=== PATIENT | female | born 1970 | race Caucasian/White ===

== ENCOUNTER 2016-07-23 11:30 | Day surgery (SDC) | payer MEDICARE ==
--- NOTE | ~2016-07-23 | EGD ---
EGD REPORT [facility] [address] [address] NAME: KRISTYN ANAND : [birth year] STATUS : REG [facility]#: [id number] AGE: 46 ADM/REG DATE : 07/23/16 MR#: [id number] REPORT SERV DATE: 07/23/16 DICTATED BY: DATE: REPORT STATUS : Draft TRANSCRIBED BY: [facility] DATE: 07/23/16 Endoscopy Center Patient Name: Kristyn Anand Date of : 1970 Attending MD: NATHAN JOHNSON MD Procedure Date No Time: 07/23/2016 Procedure: Upper GI endoscopy Indications: Dyspepsia, Abnormal CT of the GI tract Referring MD: BJORN GARCIA Medicines: Monitored Anesthesia Care Complications: No immediate complications. Procedure: Pre-Anesthesia Assessment: - ASA Grade Assessment: III - A patient with severe systemic disease. After obtaining informed consent, the endoscope was passed under direct vision. Throughout the procedure, the patient's blood pressure, pulse, and oxygen saturations were monitored continuously. The GIF H190 [id number] was introduced through the mouth, and advanced to the second part of duodenum. The upper GI endoscopy was accomplished without difficulty. The patient tolerated the procedure well. Findings: The examined esophagus was normal with the exception of a diminutive plaque in the mid-esophagus that was removed with forceps. There is no endoscopic evidence of Dudley's esophagus, areas of erosion, hiatus hernia, ulcerations or varices in the entire esophagus. The entire examined stomach was normal. Biopsies were taken with a cold forceps for histology. There is no endoscopic evidence of inflammation, mucosal abnormalities, ulceration or varices in the entire examined stomach. The examined duodenum was normal. There is no endoscopic evidence of inflammation, mucosal abnormalities or ulceration in the entire examined duodenum. The cardia and gastric fundus were normal on retroflexion. Impression: - Diminutive plaque in esophagus, biopsied and removed. - Normal stomach. Biopsied. - Normal examined duodenum. Recommendation: - Patient has a contact number available for emergencies. The signs and symptoms of potential delayed complications were discussed with the patient. Return to normal activities tomorrow. Written discharge EGD REPORT [address] [address] NAME: KRISTYN ANAND : [birth year] STATUS : [place] [facility] [place] PAT#: [id number] AGE: 46 ADM/REG DATE : 07/23/16 MR#: [id number] REPORT SERV DATE: 07/23/16 DICTATED BY: DATE: REPORT STATUS : Draft TRANSCRIBED BY: [employer] DATE: 07/23/16 instructions were provided to the patient. - Return to previous diet. - Discharge patient to home. - Continue present medications. - Await pathology results. Procedure Code(s): --- Professional --- 18288, Esophagogastroduodenoscopy, flexible, transoral; with biopsy, single or multiple Diagnosis Code(s): --- Professional --- K30, Functional dyspepsia R93.3, Abnormal findings on diagnostic imaging of other parts of digestive tract CPT copyright 2013 [employer]. All rights reserved. The codes documented in this report are preliminary and upon inpatient coder review may be revised to meet current compliance requirements. NATHAN JOHNSON MD 07/23/2016 2:34 PM This report has been signed electronically. Number of Addenda: 0 Note Initiated On: 07/23/2016 2:06 PM Scope Withdrawal Time 0 hours 0 minutes 0 seconds [address] [place] [address]
--- NOTE | ~2016-07-23 | EGD ---
EGD REPORT [facility] [address] [address] NAME: KRISTYN ANAND : [birth year] STATUS : REG [facility]#: [id number] AGE: 46 ADM/REG DATE : 07/23/16 MR#: [id number] REPORT SERV DATE: 07/23/16 DICTATED BY: DATE: REPORT STATUS : Draft [facility]ANS[facility]IB[facility] BY: [facility] DATE: 07/23/16 Endoscopy Center Patient Name: Kristyn Anand Date of : 1970 Attending MD: NATHAN JOHNSON MD Procedure Date No Time: 07/23/2016 Procedure: Upper GI endoscopy Indications: Dyspepsia, Abnormal CT of the GI tract Referring MD: BJORN GARCIA Medicines: Monitored Anesthesia Care Complications: No immediate complications. Procedure: Pre-Anesthesia Assessment: - ASA Grade Assessment: III - A patient with severe systemic disease. After obtaining informed consent, the endoscope was passed under direct vision. Throughout the procedure, the patient's blood pressure, pulse, and oxygen saturations were monitored continuously. The GIF H190 [id number] was introduced through the mouth, and advanced to the second part of duodenum. The upper GI endoscopy was accomplished without difficulty. The patient tolerated the procedure well. Findings: The examined esophagus was normal with the exception of a diminutive plaque in the mid-esophagus that was removed with forceps. There is no endoscopic evidence of Dudley's esophagus, areas of erosion, hiatus hernia, ulcerations or varices in the entire esophagus. The entire examined stomach was normal. Biopsies were taken with a cold forceps for histology. There is no endoscopic evidence of inflammation, mucosal abnormalities, ulceration or varices in the entire examined stomach. The examined duodenum was normal. There is no endoscopic evidence of inflammation, mucosal abnormalities or ulceration in the entire examined duodenum. The cardia and gastric fundus were normal on retroflexion. Impression: - Diminutive plaque in esophagus, biopsied and removed. - Normal stomach. Biopsied. - Normal examined duodenum. Recommendation: - Patient has a contact number available for emergencies. The signs and symptoms of potential delayed complications were discussed with the patient. Return to normal activities tomorrow. Written discharge EGD REPORT [address] [address] NAME: KRISTYN ANAND : [birth year] STATUS : REG [facility] PAT#: [id number] AGE: 46 ADM/REG DATE : 07/23/16 MR#: [id number] REPORT SERV DATE: 07/23/16 DICTATED BY: DATE: REPORT STATUS : Draft TRANSCRIBED BY: [employer] DATE: 07/23/16 instructions were provided to the patient. - Return to previous diet. - Discharge patient to home. - Continue present medications. - Await pathology results. Procedure Code(s): --- Professional --- 21265, Esophagogastroduodenoscopy, flexible, transoral; with biopsy, single or multiple Diagnosis Code(s): --- Professional --- K30, Functional dyspepsia R93.3, Abnormal findings on diagnostic imaging of other parts of digestive tract CPT copyright 2013 [employer]. All rights reserved. The codes documented in this report are preliminary and upon vest front presser review may be revised to meet current compliance requirements. NATHAN JOHNSON MD 07/23/2016 2:34 PM This report has been signed electronically. Number of Addenda: 0 Note Initiated On: 07/23/2016 2:06 PM Scope Withdrawal Time 0 hours 0 minutes 0 seconds [address] [place] [address]
[~2016-07-23 11:30] MED LIST: ASA5GR PO; ASAB PO; ASABAYER PO; ATEN25 PO; ATEN50 PO; ATV.5 PO; BENTYL10 PO; BUM2 PO; CARDIZEM; CARDIZEM LA180 MG PO; COZ50 PO; CRESTOR10 PO; CYMBALTA60 PO; DEMA20 PO; ESTRADIOL2 MG OR; ESTRADIOL2 MG PO; EXCEDRIN MIGRA1 EAC1 PO; FIORICET PO; FLEX PO; HYDROCODONE OR; KDUR10 PO; KLOR-CON M1010 MEQ PO; KLOR-CON M2020 MEQ PO; L40 PO; L80 PO; LIPITOR10 PO; LYRICA50 PO; MACROBID PO; MAGOX4 PO; MAX25 PO; NEUR300 PO; NEXIUM40 PO; NORCO1 TAB PO; NORV5 PO; PR25 PO; PRILO PO; PRILOSEC40 MG PO; PROTONIX PO; REXULTI PO; TAMBOCOR PO; TETRACYCLINE; TOPAMAX100 PO; TOPAMAX200 MG PO; TOPAMAX50 MG PO; TRINTELLIX10 MG PO; V5 PO; VENTOLIN HFA INH; VITAMIN B-121000 MC1 SL; VITAMIN E OR; VOLTARAN; XANAX1 MG PO; ZAROX2.5B PO; [UNRECOGNIZED DRUG - OTHER] PO
== END 2016-07-23 23:59 | disposition home or self-care (01) ==
LOC: DMU 11:30
PROVIDERS: Internal Medicine Gastroenterology
PROC: 0DB68ZZ Excision of Stomach, Via Natural or Artificial Opening Endoscopic (ICD-10-PCS; principal; 2016-07-23 14:30)
DX: K20.9 Esophagitis, unspecified (principal); K30 Functional dyspepsia; R93.3 Abnormal findings on diagnostic imaging of other parts of digestive tract; I48.91 Unspecified atrial fibrillation; I50.9 Heart failure, unspecified; F41.9 Anxiety disorder, unspecified; I10 Essential (primary) hypertension; E11.9 Type 2 diabetes mellitus without complications; I05.0 Rheumatic mitral stenosis; Z88.1 Allergy status to other antibiotic agents; Z88.8 Allergy status to other drugs, medicaments and biological substances; Z98.51 Tubal ligation status; Z90.49 Acquired absence of other specified parts of digestive tract; Z90.710 Acquired absence of both cervix and uterus; Z98.890 Other specified postprocedural states
CPT/HCPCS: 82962; 88305